=== PATIENT | male | born 1980 | race Two or more races ===

== ENCOUNTER 2017-09-26 12:51 | Emergency (ER) | payer SELFPAY ==
--- NOTE | 2017-09-26 13:10 | EDM.PDOC ---
ED HPI GENERAL MEDICAL PROBLEM - General Chief Complaint: Skin Complaint Stated Complaint: POSSIBLE HEMROID. COMPLAINS OF PAIN IN THE ANUS. Time Seen by Provider: 09/26/17 13:08 Source of Information: Reports: Patient History Limitations: Reports: No Limitations - History of Present Illness INITIAL COMMENTS - FREE TEXT/NARRATIVE: HISTORY AND PHYSICAL: History of present illness: Patient is a 37-year-old male who presents to the emergency room today with complaints of rectal pain. He states on Thursday he noticed a hemorrhoid which had been bleeding and causing pain when sitting or straining to have a bowel movement. Over the past several days this has been increasingly more bothersome and he had noticed some blood in his stool. He states that "I thought it popped open" but continues to have discomfort. Fever, chills, chest pain, shortness of breath or cough. He denies any abdominal pain, nausea, vomiting, diarrhea or constipation. No urinary symptoms. Review of systems: As per history of present illness and below otherwise all systems reviewed and negative. Past medical history: As per history of present illness and as reviewed below otherwise noncontributory. Surgical history: As per history of present illness and as reviewed below otherwise noncontributory. Social history: No reported history of drug or alcohol abuse. Family history: As per history of present illness and as reviewed below otherwise noncontributory. Physical exam: General: Well-developed and well-nourished 37-year-old male. Alert and oriented. Nontoxic appearing and in no acute distress. HEENT: Atraumatic, normocephalic, pupils equal and reactive bilaterally, negative for conjunctival pallor or scleral icterus, mucous membranes moist, throat clear, neck supple, nontender, trachea midline. No drooling or trismus noted. No meningeal signs Lungs: Clear to auscultation, breath sounds equal bilaterally, chest nontender. Heart: S1S2, regular rate and rhythm without overt murmur Abdomen: Soft, nondistended, nontender. Negative for masses or hepatosplenomegaly. Negative for costovertebral tenderness. Pelvis: Stable nontender. Genitourinary: Deferred. Rectal: This was done with a survey cad technician at the bedside and consent was obtained. Nickel-sized hemorrhoid noted to the 2 o'clock position. Hemocult stool negative. Good rectal tone. Patient tolerated well. Skin: Intact, warm, dry. No lesions or rashes noted. Extremities: Atraumatic, negative for cords or calf pain. Neurovascular unremarkable. Neuro: Awake, alert, oriented. Cranial nerves II through XII unremarkable. Cerebellum unremarkable. Motor and sensory unremarkable throughout. Exam nonfocal. Notes: The procedure was explained, risks versus benefits were reviewed, and patient is agreeable. Consent was obtained. Broad at bedside. 1% lidocaine was used to anesthetize the area. An #11 blade was used to create a small linear incision. Blood clot was expressed from the hemorrhoid. Patient tolerated well. No bleeding post procedure. Supportive care measures were reviewed and discussed. Patient voices understanding and is agreeable to plan of care. Denies any further questions or concerns at this time. Diagnostics: None Therapeutics: Lidocaine Prescription: Anusol HC Cream Impression: Hemorrhoid Plan: 1. Avoid straining with your bowel movements. May want to take a stool softener to help prevent this. 2. Use the prescription medication as directed. 3. Follow up with your primary care provider in the next 1-2 days. Return to the ED as needed and as discussed. Definitive disposition and diagnosis as appropriate pending reevaluation and review of above. Rectal Pain Score (Numeric/FACES): 7 - Related Data Allergies Allergy/AdvReac Type Severity Reaction Status Date / Time No Known Allergies Allergy Verified 09/26/17 13:08 Home Meds: Home Meds . [No Known Home Meds] 07/10/13 [History] Past Medical History - Past Health History Medical/Surgical History: Denies Medical/Surgical History ED ROS GENERAL - Review of Systems Review Of Systems: ROS reveals no pertinent complaints other than HPI. ED EXAM, SKIN/RASH Exam: See Below (See dictation) Course - Vital Signs Last Recorded V/S: Last Vital Signs Temp 97.4 F 09/26/17 13:06 Pulse 73 09/26/17 13:06 Resp 18 09/26/17 13:06 BP 157/97 H 09/26/17 13:06 Pulse Ox 95 09/26/17 13:06 - Orders/Labs/Meds Meds: Medications Discontinued Medications Generic Name Dose Route Start Last Admin Trade Name Freq PRN Reason Stop Dose Admin Lidocaine HCl 5 ml 09/26/17 13:24 Xylocaine-Mpf 1% INJECT 09/26/17 13:25 ONETIME ONE Departure - Departure Time of Disposition: 14:00 Disposition: Home, Self-Care 01 Clinical Impression: External hemorrhoid, thrombosed - Discharge Information Instructions: Hemorrhoids, [id number] Referrals: PCP,None [Primary Care Provider] - Forms: ED Department Discharge Additional Instructions: The following information is given to patients seen in the emergency department who are being discharged to home. This information is to outline your options for follow-up care. We provide all patients seen in our emergency department with a follow-up referral. The need for follow-up, as well as the timing and circumstances, are variable depending upon the specifics of your emergency department visit. If you don't have a primary care physician on staff, we will provide you with a referral. We always advise you to contact your personal physician following an emergency department visit to inform them of the circumstance of the visit and for follow-up with them and/or the need for any referrals to a consulting specialist. The emergency department will also refer you to a specialist when appropriate. This referral assures that you have the opportunity for follow-up care with a specialist. All of these measure are taken in an effort to provide you with optimal care, which includes your follow-up. Under all circumstances we always encourage you to contact your private physician who remains a resource for coordinating your care. When calling for follow-up care, please make the office aware that this follow-up is from your recent emergency room visit. If for any reason you are refused follow-up, please contact the Emergency Department at and asked to speak to the emergency department charge nurse. Primary Care [facility] [address] [place] [id number] Specialty Care - General Surgery Professional Building [address] [place] [address], [address] [place] [address] 1. Avoid straining with your bowel movements. May want to take a stool softener to help prevent this. 2. Use the prescription medication as directed. 3. Follow up with your primary care provider in the next 1-2 days. Return to the ED as needed and as discussed.
== END 2017-09-26 13:58 | disposition home or self-care (01) ==
LOC: MW.ED 12:51
DX: K64.5 Perianal venous thrombosis (principal)
CPT/HCPCS: 99282